=== PATIENT | female | born 1930 | race Caucasian/White ===

== ENCOUNTER 2017-01-28 11:46 | Emergency (ER) | payer MEDICARE, BC ==
[~2017-01-28] VITALS: Ht 147.3 cm; Wt 47.2 kg
[~2017-01-28 11:46] MED LIST: ALBU2.5V INH; ALPR0.5T5 PO; ASPI-496 PO; CEPH250S GT; ESTR0.5G TP; ESTR0.5T PO; GUAI400T66 PO; HYDR-882 GT; HYDR25TA11 PO; HYDR25VI IM; LEVA15HF4 INH; LEVO88CA2 PO; METO25TA2 PO; MUPI22OI TP; NITR0.4T28 PO; OLAN5TAB3 PO; OLAN5TAB9 PO; OMEP-110 PO; PRAV40TA2 PO; SULF1TAB24 PO; TRIA60LO3 TP
[2017-01-28] MEDS ORDERED: OMNIPAQUE 350 MG/ML, 50 ML BOTTLE ONE (14:10)
[2017-01-28 14:36] VITALS: BP 129/55
== END 2017-01-28 14:43 | disposition home or self-care (01) ==
LOC: ED 12:55
DX: Z43.1 Encounter for attention to gastrostomy (principal); I10 Essential (primary) hypertension; Z88.6 Allergy status to analgesic agent; Z87.891 Personal history of nicotine dependence; Z85.89 Personal history of malignant neoplasm of other organs and systems
CPT/HCPCS: 43760; 74000; 99284; Q9967

== ENCOUNTER 2017-03-28 12:05 | Emergency (ER) | payer MEDICARE, BC ==
[~2017-03-28] VITALS: Ht 147.3 cm; Wt 46.1 kg
[2017-03-28 12:11] VITALS: BP 140/83
[2017-03-28 13:42] LABS: ALANINE AMINOTRANSFERASE 23 U/L (12-78); ALBUMIN 4.3 g/dL (3.4-5.0); ANION GAP 9 mmol/L (5-15); CALCIUM 9.4 mg/dL (8.5-10.1); CHLORIDE 106 mmol/L (98-107); CREATININE 0.95 mg/dL (0.55-1.02)
[2017-03-28 13:44] LABS: ALKALINE PHOSPHATASE 107 U/L (45-117); BILIRUBIN,TOTAL 1.1 mg/dL (0.2-1.0); TOTAL PROTEIN 8.6 g/dL (6.4-8.2)
[2017-03-28 14:12] LABS: MEAN CORPUSCULAR HEMOGLOBIN 34.9 pg (27.0-34.8); MEAN CORPUSCULAR HGB CONC 33.8 g/dL (32.4-35.8); MEAN CORPUSCULAR VOLUME 103.3 fL (80-100); RED BLOOD COUNT 3.76 x10^6/uL (3.82-5.3); RED CELL DISTRIBUTION WIDTH 13.8 % (9.6-15.2)
[2017-03-28 14:13] LABS: MEAN PLATELET VOLUME 9.4 fL (7.4-10.4); PLATELET COUNT 179 x10^3/uL (130-400)
[2017-03-28 14:16] LABS: MD SCAN
[2017-03-28 14:23] LABS: MICROSCOPIC INDICATED
[2017-03-28 14:24] LABS: CULTURE INDICATED? YES
[2017-03-28 14:30] LABS: BASOPHILS # (AUTO) 0.01 x10^3/uL (0-0.1); BASOPHILS % (AUTO) 0 % (0-1); EOSINOPHILS # (AUTO) 0.01 x10^3/uL (0-0.4); EOSINOPHILS % (AUTO) 0 % (1-7); LYMPHOCYTES # (AUTO) 0.52 x10^3/uL (1-3.4); LYMPHOCYTES % (AUTO) 10 % (22-44); MONOCYTES # (AUTO) 0.28 x10^3/uL (0.2-0.8); MONOCYTES % (AUTO) 5 % (2-9); NEUTROPHILS # (AUTO) 4.53 x10^3/uL (1.8-6.8); NEUTROPHILS % (AUTO) 85 % (42-75)
[2017-03-28] MEDS ORDERED: OMNIPAQUE 350 MG/ML, 100ML BOTTLE ONE (14:40)
== END 2017-03-28 16:30 | disposition home or self-care (01) ==
LOC: ED 14:20
DX: K94.21 Gastrostomy hemorrhage (principal); I10 Essential (primary) hypertension; Z46.59 Encounter for fitting and adjustment of other gastrointestinal appliance and device; Z90.710 Acquired absence of both cervix and uterus; Z90.49 Acquired absence of other specified parts of digestive tract
CPT/HCPCS: 36415; 74177; 80053; 81001; 83690; 85025; 87077; 87086; 87186; 99285; Q9967

== ENCOUNTER → 2017-07-30 | Outpatient (CLI) | payer MEDICARE, BC | END | disposition home or self-care (01) | LOC: CFH 12:23 | PROVIDERS: ATTEND Genetic Counselor, MS | DX: D32.0 Benign neoplasm of cerebral meninges (principal) | CPT/HCPCS: 70450 ==

== ENCOUNTER 2017-08-15 12:07 | Emergency (ER) | payer MEDICARE, BC ==
[~2017-08-15] VITALS: Ht 147.3 cm; Wt 46.8 kg
[2017-08-15] MEDS ORDERED: HYDROcodone/APAP 5/325 TABLET ONE (13:55)
[2017-08-15] MEDS ORDERED: HYDROcodone/APAP 5/325 TABLET PO ONE (14:00)
[2017-08-15 14:58] VITALS: BP 132/78
== END 2017-08-15 15:01 | disposition home or self-care (01) ==
LOC: ED 14:20
DX: R51 Headache (principal); R41.82 Altered mental status, unspecified; I10 Essential (primary) hypertension; C14.0 Malignant neoplasm of pharynx, unspecified
CPT/HCPCS: 99283

== ENCOUNTER → 2017-08-27 | Outpatient (CLI) | payer MEDICARE, BC | END | disposition home or self-care (01) | LOC: PETCFH 12:41 | PROVIDERS: ATTEND Otolaryngology Facial Plastic Surgery | DX: C32.8 Malignant neoplasm of overlapping sites of larynx (principal) | CPT/HCPCS: 78815; A9552 ==